=== PATIENT | female | born 1975 | race American Indian/Alaskan Native ===

== ENCOUNTER 2018-10-10 21:35 | Emergency (ER) | payer OTHER ==
--- NOTE | 2018-10-10 21:49 | Emergency Department Report ---
Blank Doc - Documentation Documentation: This is a 42-year-old female that presents with left ankle pain s/p fall This initial assessment/diagnostic orders/clinical plan/treatment(s) is/are subject to change based on patient's health status, clinical progression and re- assessment by fellow clinical providers in the ED. Further treatment and workup at subsequent clinical providers discretion. Patient/guardians urged not to elope from the ED as their condition may be serious if not clinically assessed and managed. Initial orders include: 1- Patient sent to [facility] for further evaluation and treatment 2- xray
--- NOTE | 2018-10-10 23:35 | XRay Report ---
PROCEDURE: XR ANKLE 3+V LT TECHNIQUE: 3 views of the left ankle HISTORY: ankle pain COMPARISONS: No priors FINDINGS: No evidence of acute fracture or dislocation. The ankle mortise is intact. Degenerative changes with bony spurring along the medial malleolus. Large inferior calcaneal spur. Retrocalcaneal enthesophyte. IMPRESSION: . No acute fracture or dislocation of the right ankle. Degenerative changes with large inferior calcaneal spur. This document is electronically signed by Mike Smith MD., October 10 2018 11:33:41 PM ET
[2018-10-11] MEDS ORDERED: TORADOL IM ONE (00:32)
--- NOTE | 2018-10-11 00:35 | Emergency Department Report ---
ED Lower Extremity HPI - General Chief Complaint: Extremity Injury, Lower Stated Complaint: LEFT FOOT INJURY Time Seen by Provider: 10/10/18 21:48 Source: patient Mode of arrival: Ambulatory Limitations: No Limitations - History of Present Illness Initial Comments: She is a 42-year-old female who comes to the ER today complaining of ankle pain. She states that she was walking her dog coyote came towards the dog started to bark and in an attempt to get away she rolled her ankle in a hole. She is complaining of medial left ankle pain. Her blood pressure is noted to be elevated on admission and she states that because of the pain in her ankle. She has never been told she has hypertension and she is not on any home medications she has no primary care doctor. She is ambulatory on admission. She is very concerned about what pain medicine she is going home with. - Related Data Previous Rx's Medication Instructions Recorded Last Taken Type Acetaminophen with Codeine 1 each PO Q8H PRN #10 tablet 10/11/18 Unknown Rx [Tylenol with Codeine #3 Tablet] Allergies Allergy/AdvReac Type Severity Reaction Status Date / Time penicillin Allergy Shortness Verified 05/31/15 20:39 of Breath ED Review of Systems ROS: Stated complaint: LEFT FOOT INJURY Other details as noted in HPI Comment: All other systems reviewed and negative ED Past Medical Hx - Past Medical History Hx Hypertension: Yes - Surgical History Past Surgical History?: No - Family History Family history: no significant - Social History Smoking Status: Never Smoker Substance Use Type: None - Medications Home Medications: Home Medications Medication Instructions Recorded Confirmed Last Taken Type Acetaminophen with Codeine 1 each PO Q8H PRN #10 tablet 10/11/18 Unknown Rx [Tylenol with Codeine #3 Tablet] ED Physical Exam - General Limitations: No Limitations General appearance: alert, in no apparent distress - Head Head exam: Present: atraumatic, normocephalic - Eye Eye exam: Present: normal appearance, PERRL - ENT ENT exam: Present: mucous membranes moist - Neck Neck exam: Present: normal inspection - Respiratory Respiratory exam: Present: normal lung sounds bilaterally - Cardiovascular Cardiovascular Exam: Present: regular rate - GI/Abdominal GI/Abdominal exam: Present: soft - Rectal Rectal exam: Present: deferred - Extremities Exam Extremities exam: Present: normal inspection, full ROM - Back Exam Back exam: Present: normal inspection, full ROM - Neurological Exam Neurological exam: Present: alert, oriented X3, CN II-XII intact, normal gait - Psychiatric Psychiatric exam: Present: normal affect, normal mood - Skin Skin exam: Present: warm, dry ED Course Vital Signs 10/10/18 10/11/18 21:49 00:50 Temperature 97.9 F Pulse Rate 57 L 55 L Respiratory 18 16 Rate Blood Pressure 149/106 152/95 [Right] O2 Sat by Pulse 100 100 Oximetry ED Lower Extremity MDM - Radiology Data Radiology results: report reviewed, image reviewed - Medical Decision Making XRAY NEG FULL ROM AND AMBULATORY ON ADMIT TO [facility] NO SWELLING NOTED DP PLUS 2 BILATERAL RAPID CAP REFILL REVIEW OF EMR REVEALS HX HTN NO FOCAL NEURO DEF NO CP NO SOB NO HEADACHE DISCUSSED BP MANAGEMENT WITH PT MEDICATED FOR PAIN IN ED RN TO RECHECK BP WILL DC HOME WITH RICE AND PCP REFERRAL AND FOLLOW UP Vital Signs 10/10/18 10/11/18 21:49 00:50 Temperature 97.9 F Pulse Rate 57 L 55 L Respiratory 18 16 Rate Blood Pressure 149/106 152/95 [Right] O2 Sat by Pulse 100 100 Oximetry Critical care attestation.: If time is entered above; I have spent that time in minutes in the direct care of this critically ill patient, excluding procedure time. ED Disposition Clinical Impression: Sprained ankle, Elevated blood pressure reading Disposition: DC-01 TO HOME OR SELFCARE Is pt being admited?: No Does the pt Need Aspirin: No Condition: Stable Instructions: Ankle Sprain (ED), DASH Eating Plan (ED), Low Sodium Diet (ED), Hypertension (ED) Additional Instructions: ICE REST ELEVATE MOTRIN 800 MG EVERY 8 HOURS FOR MILD PAIN TAKE WITH FOOD TYLENOL NO 3 ORDERED TODAY SEE ORTHO OR PCP FOR ANYTHING STRONGER DIET TOLERATED MONITOR YOUR BLOOD PRESSURE IT WAS HIGH TODAY LOW SALT AND LOW FAT DIET PCP REFERRAL BELOW SO YOU CAN FOLLOW AND MONITOR YOUR BLOOD PRESSURE Prescriptions: Acetaminophen with Codeine [Tylenol with Codeine #3 Tablet] 1 each PO Q8H PRN #10 tablet PRN Reason: Pain , Severe (7-10) Referrals: HEDY ARMSTRONG MD [Primary Care Provider] - 3-5 Days GIULIA SUMNER MD [Staff Physician] - 3-5 Days Time of Disposition: 00:33
[2018-10-11 00:51] VITALS: BP 152/95
== END 2018-10-11 01:00 | disposition home or self-care (01) ==
LOC: ED 21:35
DX: S93.402A Sprain of unspecified ligament of left ankle, initial encounter (principal); I10 Essential (primary) hypertension; Z88.0 Allergy status to penicillin; W01.0XXA Fall on same level from slipping, tripping and stumbling without subsequent striking against object, initial encounter; Y93.K1 Activity, walking an animal; Y92.89 Other specified places as the place of occurrence of the external cause; Y99.8 Other external cause status
CPT/HCPCS: 73610; 96372; 99283; J1885